=== PATIENT | female | born 1975 | race African-American/Black ===

== ENCOUNTER 2021-08-29 08:14 | Outpatient (CLI) | payer MEDICARE, MEDICAID | END 2021-08-29 08:15 | disposition home or self-care (01) | LOC: CSHWCC 08:14 | PROVIDERS: ATTEND Nurse Practitioner Family | DX: T21.31XD Burn of third degree of chest wall, subsequent encounter (principal) | CPT/HCPCS: 16020; 97139; G0463; 99203 ==

== ENCOUNTER 2021-09-05 10:38 | Outpatient (CLI) | payer MEDICARE, MEDICAID | END 2021-09-05 10:39 | disposition home or self-care (01) | LOC: CSHWCC 10:38 | PROVIDERS: ATTEND Nurse Practitioner Family | DX: T21.31XD Burn of third degree of chest wall, subsequent encounter (principal) ==

== ENCOUNTER 2021-09-27 09:57 | Outpatient (CLI) | payer MEDICARE, MEDICAID | END 2021-09-27 09:58 | disposition home or self-care (01) | LOC: CSHWCC 09:57 | PROVIDERS: ATTEND Nurse Practitioner Family | DX: T21.31XD Burn of third degree of chest wall, subsequent encounter (principal) ==

== ENCOUNTER 2022-04-05 13:08 | Outpatient (CLI) | payer MEDICARE, MEDICAID | END 2022-04-05 13:09 | disposition home or self-care (01) | LOC: CSHWCC 13:08 | PROVIDERS: ATTEND Preventive Medicine Undersea and Hyperbaric Medicine | DX: T24.012D Burn of unspecified degree of left thigh, subsequent encounter (principal) | CPT/HCPCS: 97139; G0463; 99213 ==

== ENCOUNTER 2022-05-27 16:50 | Emergency (ER) | payer OTHER, MEDICAID ==
[2022-05-27] MEDS ORDERED: Morphine 4 MG/ML VIAL ONE (17:39)
[2022-05-27] MEDS ORDERED: Morphine 2 MG/ML VIAL ONE (17:40)
[2022-05-27 17:51] LABS: Bilirubin Neg (Negative); Blood, Urine 50 (Negative); Clarity Clear (Clear); Glucose, Urine (Dipstick) Normal (Negative); Ketone, Urine Negative (Negative); Leukocyte Negative (Negative); Nitrite Negative (Negative); Protein, Urine (Dipstick) 500 mg/dl (Neg-Trace); Specific Gravity, Urine 1.015 (1.005-1.030); Urobilinogen Normal mg/dL (Less than 2); pH, Urine 6.5 (5.0-9.0)
[2022-05-27 18:18] LABS: Bacteria/HPF Rare-Few HPF (None Seen); Squamous Epithelial 0-3 HPF (0-3)
[2022-05-27 18:20] LABS: ALT (SGPT) 6 U/L (8-55); AST (SGOT) 14 U/L (5-34); Albumin 1.3 g/dL (3.5-5.0); Alkaline Phosphatase 63 U/L (40-110); Anion Gap 10 mmol/L (10-20); BUN (Urea Nitrogen) 6 mg/dL (7.0-18.7); Bilirubin, Total 0.1 mg/dL (0.2-1.2); Calc. Creatinine Clearance 0 mL/min (70-130); Calcium 7.4 mg/dL (7.8-10.44); Carbon Dioxide 25 mmol/L (22-29); Chloride 106 mmol/L (98-107); Estimated GFR 62; Globulin 2.5 g/dL (2.4-3.5); Glucose 86 mg/dL (70-105); Lipase 10 U/L (8-78); Potassium 3.3 mmol/L (3.5-5.1); Protein, Total 3.8 g/dL (6.0-8.3); Sodium 138 mmol/L (136-145)
[2022-05-27 19:03] LABS: #Eosinphils 0.7 10x3/uL (0.0-0.5); #Monocytes 0.5 10x3/uL (0.0-1.1); #Neutrophils 3.9 10x3/uL (1.5-8.4); %Basophils 0.4 % (0.0-2.0); %Lymphocytes 44.1 % (18.0-47.0); %Monocytes 5.7 % (0.0-10.0); %Neutrophils 41.6 % (40.0-75.0); Hemoglobin 10.4 g/dL (12.0-15.5); Mean Corpuscular HGB CONC 32.1 g/dL (32.0-36.0); Mean Corpuscular Hemoglobin 25.9 pg (27.0-33.0); Mean Corpuscular Volume 80.6 fl (81.6-98.3); Mean Platelet Volume 9.7 fl (7.4-10.4); Platelet Count 360 10x3/uL (150-450); Red Blood Cell (RBC) Count 4.02 10x6/uL (3.90-5.03); White Blood Cell (WBC) Count 9.3 10x3/uL (3.5-10.5)
[2022-05-27] MEDS ORDERED: Ondansetron ODT 4 MG TAB ONE (19:03)
== END 2022-05-27 19:10 | disposition home or self-care (01) ==
LOC: CSHERS 16:50
DX: R60.9 Edema, unspecified (principal); R06.00 Dyspnea, unspecified; E11.9 Type 2 diabetes mellitus without complications; I10 Essential (primary) hypertension
CPT/HCPCS: 71045; 80053; 81003; 81015; 83690; 83880; 84484; 85025; 93005; 96372; J2270; J2272; Q0162

== ENCOUNTER 2024-01-13 18:54 | Emergency (ER) | payer OTHER | END 2024-01-13 20:27 | disposition home or self-care (01) | LOC: CSHERS 18:54 | DX: L03.011 Cellulitis of right finger (principal); S39.012A Strain of muscle, fascia and tendon of lower back, initial encounter; I12.9 Hypertensive chronic kidney disease with stage 1 through stage 4 chronic kidney disease, or unspecified chronic kidney disease; E11.22 Type 2 diabetes mellitus with diabetic chronic kidney disease; N18.9 Chronic kidney disease, unspecified; Z79.85 Long-term (current) use of injectable non-insulin antidiabetic drugs; Z79.899 Other long term (current) drug therapy; W19.XXXA Unspecified fall, initial encounter | CPT/HCPCS: 99283 ==

== ENCOUNTER 2024-06-02 12:14 | Emergency (ER) | payer OTHER | END 2024-06-02 13:43 | disposition home or self-care (01) | LOC: CSHERS 12:14 | DX: S93.602A Unspecified sprain of left foot, initial encounter (principal); I48.91 Unspecified atrial fibrillation; I12.9 Hypertensive chronic kidney disease with stage 1 through stage 4 chronic kidney disease, or unspecified chronic kidney disease; E11.22 Type 2 diabetes mellitus with diabetic chronic kidney disease; N18.9 Chronic kidney disease, unspecified; W18.31XA Fall on same level due to stepping on an object, initial encounter | CPT/HCPCS: 99283 ==

== ENCOUNTER 2025-01-01 15:25 | Emergency (ER) | payer OTHER, MEDICAID ==
[2025-01-01 17:53] LABS: #Basophils Less than 0.03 10x3/uL (0.0-0.2); #Eosinophils 0.20 10x3/uL (0.0-0.5); #Monocytes 0.68 10x3/uL (0.0-1.1); #Neutrophils 3.85 10x3/uL (1.5-8.4); %Basophils 0.1 % (0.0-2.0); %Eosinophils 2.7 % (0.0-6.0); %Lymphocytes 34.6 % (18.0-47.0); %Monocytes 9.3 % (0.0-10.0); %Neutrophils 53.0 % (40.0-75.0); Hematocrit 30.1 % (34.9-44.5); Hemoglobin 9.0 g/dL (12.0-15.5); Mean Corpuscular Hemoglobin 25.6 pg (27.0-33.0); Mean Corpuscular Volume 85.5 fL (81.6-98.3); Platelet Count 269 10x3/uL (150-450); Red Blood Cell (RBC) Count 3.52 10x6/uL (3.90-5.03); White Blood Cell (WBC) Count 7.28 10x3/uL (3.5-10.5)
[2025-01-01] MEDS ORDERED: HYDROcodone/Acetaminophen 5/325 mg Tablet ONE (18:09)
[2025-01-01 18:18] LABS: ALT (SGPT) 8 U/L (Less than 34); AST (SGOT) 11 U/L (11-34); Albumin 2.4 g/dL (3.1-4.5); Alkaline Phosphatase 79 U/L (40-110); Anion Gap 12 mmol/L (10-20); BUN (Urea Nitrogen) 15 mg/dL (7.0-18.7); Bilirubin, Total 0.1 mg/dL (0.3-1.2); Calc. Creatinine Clearance 0 mL/min (70-130); Calcium 8.6 mg/dL (7.8-10.44); Carbon Dioxide 30 mmol/L (22-29); Chloride 101 mmol/L (98-107); Globulin 3.0 g/dL (2.4-3.5); Glucose 88 mg/dL (70-105); Potassium 4.3 mmol/L (3.5-5.1); Sodium 139 mmol/L (136-145)
[2025-01-01 18:25] LABS: Troponin I 0.011 ng/mL (< 0.028)
[2025-01-01] MEDS ORDERED: Cefepime 2 GM VIAL ONE (18:29)
[2025-01-01 19:35] LABS: Glucose, Urine (Dipstick) Normal (Negative); Leukocyte Negative (Negative); Protein, Urine (Dipstick) 500 mg/dl (Neg-Trace); Specific Gravity, Urine 1.010 (1.005-1.030)
[2025-01-01 19:45] LABS: CAUTI Indications for Culture Dysuria,urgency,freq; RBC/HPF 0-3 HPF (0-3)
[2025-01-01 19:48] LABS: Bacteria/HPF 3+ HPF (None Seen); Mucous/LPF 1+ LPF (<2+)
[2025-01-01 19:49] LABS: Urine Culture Reflex No No
== END 2025-01-01 19:58 | disposition short-term general hospital (02) ==
LOC: CSHERS 15:25
DX: T81.41XA Infection following a procedure, superficial incisional surgical site, initial encounter (principal); E11.22 Type 2 diabetes mellitus with diabetic chronic kidney disease; I12.0 Hypertensive chronic kidney disease with stage 5 chronic kidney disease or end stage renal disease; N18.6 End stage renal disease; I48.91 Unspecified atrial fibrillation; J45.909 Unspecified asthma, uncomplicated; Z79.51 Long term (current) use of inhaled steroids; Z79.899 Other long term (current) drug therapy; Z79.84 Long term (current) use of oral hypoglycemic drugs
CPT/HCPCS: 71045; 80053; 81001; 83605; 84484; 85025; 87040; 87070; 87086; 87205; 93005; 94760; 96374; 96375; 99285; J0692; J3373; 36415